=== PATIENT | female | born 1970 | race Caucasian/White ===

== ENCOUNTER 2019-05-12 18:51 | Emergency (ER) | payer OTHER ==
--- NOTE | 2019-05-12 19:35 | ED Physician Documentation ---
General Adult - HISTORIAN Historian: patient - HPI Stated Complaint: back pain, L ear pain Chief Complaint: General Adult Onset: days ago (1) Timing: still present Severity: moderate Further Comments: yes (Pt is a 49 yo female with back pain in the thoracic region. Pt has had LBP in the past but not thoracic back pain. Pt had no acute injury. No CP, sob. Pt has a second complaint of L ear pain. Ear pain began 3 days ago. She has not had sore throat, cough, or fever.) - ROS CONST: no problems EYES/ENT: other (L ear pain) CVS/RESP: none GI/: none MS/SKIN/LYMPH: none - PAST HX Past History: other (Low back pain, gastric bypass) Allergies/Adverse Reactions: Allergies Allergy/AdvReac Type Severity Reaction Status Date / Time aspirin Allergy Verified 05/12/19 20:18 cefaclor [From Ceclor] Allergy Verified 05/12/19 20:18 Penicillins Allergy Verified 05/12/19 20:18 Sulfa (Sulfonamide Allergy Verified 05/12/19 20:18 Antibiotics) Home Medications: Ambulatory Orders Medication Instructions Recorded Azithromycin [Zithromax] 250 mg PO DAILY #6 tablet 05/12/19 - SOCIAL HX Smoking History: cigarettes - FAMILY HX Family History: No - REVIEWED ASSESSMENTS Nursing Assessment Reviewed: Yes Vitals Reviewed: Yes Progress - Progress Progress: diazepam 10 mg IM some improvement X-ray T-spine: neg Rx Z-elyssa for ear pain/lymphadenopathy Continue Lidoderm patches as previously rx'd for back pain. General Adult Physical Exam - PHYSICAL EXAM GENERAL APPEARANCE: moderate distress EENT: pharynx normal, TM erythema (Left) NECK: normal inspection, supple, lymphadenopathy (L pre-auricular lymphadenopathy) RESPIRATORY: no resp distress, chest non-tender, breath sounds normal CVS: reg rate & rhythm, heart sounds normal ABDOMEN: soft, no organomegaly, normal bowel sounds BACK: normal inspection, no CVA tenderness, other (muscle spasm in thoracic region) SKIN: warm/dry, normal color EXTREMITIES: non-tender, normal range of motion, no evidence of injury NEURO: oriented X3, motor nml, sensation nml Discharge Clincal Impression: L ear pain, back pain Prescriptions: Azithromycin [Zithromax] 250 mg PO DAILY #6 tablet Referrals: Primary Doctor,No [Primary Care Provider] - Condition: Stable Disposition: 01 HOME, SELF-CARE Decision to Admit: NO Decision Time: 21:21
--- NOTE | 2019-05-12 21:13 | Diagnostic Imaging Report ---
REBECCA JUDGE [facility] [address] [facility] [address] [place], [place]. [address] Report Submission Date: May 12, 2019 9:04:33 PM CDT Patient Study Name: NANCY SOLIS Date: May 12, 2019 8:38:15 PM CDT Modality Type: DX Gender: F Description: T SPINE 3 VIEWS : 66 Institution: [facility] Physician: REBECCA JUDGE THORACIC SPINE HISTORY: Mid back pain, no known injury. FINDINGS: AP, lateral and swimmer's views of the thoracic spine demonstrate vertebral bodies and intervertebral disc spaces to be within normal limits. Posterior elements are intact. No fracture or other focal abnormality is identified. Ribs included on the study showed no abnormality. IMPRESSION: Unremarkable thoracic spine images Electronically signed on May 12, 2019 9:04:33 PM CDT by: Jd PALMER
[2019-05-12 21:40] VITALS: BP 103/64
== END 2019-05-12 21:39 | disposition home or self-care (01) ==
LOC: ED 18:51
DX: H92.02 Otalgia, left ear (principal); M54.6 Pain in thoracic spine
CPT/HCPCS: 72072